=== PATIENT | male | born 1980 | race Caucasian/White ===

== ENCOUNTER 2019-02-12 11:23 | Emergency (ER) | payer OTHER, BC ==
--- NOTE | 2019-02-12 12:05 | EDM.PDOC ---
ED HPI GENERAL MEDICAL PROBLEM - General Chief Complaint: Neurological Problem Stated Complaint: [facility] Time Seen by Provider: 02/12/19 11:32 Source of Information: Reports: Patient, EMS History Limitations: Reports: No Limitations - History of Present Illness INITIAL COMMENTS - FREE TEXT/NARRATIVE: The patient presents by [facility] for seizure activity. The patient was at a job site and he got his left thumb pinched in a hitch. He had severe pain and he was getting lightheaded. He leaned on his truck and tried to compose himself. He went passed out and had some shaking. He got up again and he was confused and he passed out again. The patient was out for a few seconds each time. He was confused after that. He says this has happened before when he hurts himself. He did have a brain tumor in 2011. He had surgery to remove it and he goes back for regular check ups. There has been no problems since. He has no history of seizures. He has no headache, neck pain, chest pain, shortness of breath, abdominal pain, nausea, vomiting, numbness or weakness. He feels good and back to baseline. He does have a superficial laceration to his left index finger and left thumb. Onset: Sudden Duration: Hour(s): Location: Reports: Upper Extremity, Left (thumb) Quality: Reports: Sharp Severity: Mild Improves with: Reports: None Worsens with: Reports: None Associated Symptoms: Reports: Syncope. Denies: Chest Pain, Cough, Fever/Chills , Headaches, Nausea/Vomiting, Shortness of Breath - Related Data Allergies Allergy/AdvReac Type Severity Reaction Status Date / Time No Known Allergies Allergy Verified 02/12/19 11:37 Home Meds: Home Meds Biotin 1 tab PO DAILY 02/12/19 [History] Sertraline [Zoloft] 100 mg PO DAILY 02/12/19 [History] Past Medical History Neurological History: Reports: Other (See Below) Other Neuro History: brain tumor revoed 2011-had received chemo and radiation ED ROS GENERAL - Review of Systems Review Of Systems: See Below Constitutional: Reports: No Symptoms HEENT: Reports: No Symptoms Respiratory: Reports: No Symptoms Cardiovascular: Reports: Syncope. Denies: Chest Pain, Edema Endocrine: Reports: No Symptoms GI/Abdominal: Reports: No Symptoms : Reports: No Symptoms Musculoskeletal: Reports: No Symptoms - Physical Exam Exam: See Below Exam Limited By: No Limitations General Appearance: Alert, No Apparent Distress Ears: Normal External Exam Nose: Normal Inspection Head Exam: Atraumatic, Normocephalic Neck: Normal Inspection Respiratory/Chest: No Respiratory Distress, Lungs Clear, Normal Breath Sounds Cardiovascular: Regular Rate, Rhythm, No Edema, No Murmur GI/Abdominal: Soft, Non-Tender, No Organomegaly, No Mass Neuro Exam (Abbreviated): Alert, Oriented, No Motor/Sensory Deficits Extremities: Other (superficial laceration to left index finger and superficial laceration to the left thumb with good sensation and capillary refill) Course - Vital Signs Last Recorded V/S: Last Vital Signs Temp 98.1 F 02/12/19 11:40 Pulse 72 02/12/19 11:40 Resp 20 02/12/19 11:40 BP 124/75 02/12/19 11:40 Pulse Ox 99 02/12/19 11:40 - Re-Assessments/Exams Free Text/Narrative Re-Assessment/Exam: 02/12/19 12:07 The patient did not want any work up done. This has happened before and he gets regular check ups related to his brain tumor. He is back to baseline now. I feel it is safe to let him go. 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 Follow up with your doctor in a week. Clean the laceration 2 times per day with warm soapy water and apply antibiotics after. Please return if you notice redness, swelling, pain or drainage from the wound. You may need oral antibiotics.
== END 2019-02-12 12:23 | disposition home or self-care (01) ==
LOC: JD.ED 11:23
DX: S61.412A Laceration without foreign body of left hand, initial encounter (principal); F48.8 Other specified nonpsychotic mental disorders; Z79.899 Other long term (current) drug therapy; W23.0XXA Caught, crushed, jammed, or pinched between moving objects, initial encounter
CPT/HCPCS: 99282; 99284